=== PATIENT | female | born 1945 | race Caucasian/White ===

== ENCOUNTER 2024-08-20 12:04 | Outpatient (CLI) | payer MEDICARE | END 2024-08-20 23:59 | disposition home or self-care (01) | LOC: RAD 12:04 | PROVIDERS: ATTEND Nurse Practitioner | DX: M51.379 Other intervertebral disc degeneration, lumbosacral region without mention of lumbar back pain or lower extremity pain (principal); M54.50 Low back pain, unspecified | CPT/HCPCS: 72110 ==